=== PATIENT | female | born 1990 | race Asian ===

== ENCOUNTER 2020-02-07 05:15 | Emergency (ER) | payer BC ==
[~2020-02-07] VITALS: Ht 154.9 cm; Wt 95.0 kg
[2020-02-07 06:20] LABS: D-DIMER 0.25 MG/L FEU (0-0.50)
[2020-02-07 06:22] LABS: ALANINE AMINOTRANSFERASE 113 U/L (12-78); ALBUMIN 3.6 G/DL (3.4-5.0); ALBUMIN/GLOBULIN RATIO 0.7 (1.1-1.5); ALKALINE PHOSPHATASE 86 IU/L (46-116); ANION GAP 10 (8-16); ASPARTATE AMINO TRANSFERASE 86 U/L (10-37); BASOPHILS % (AUTO) 0.3 % (0-1); BILIRUBIN,TOTAL 0.5 MG/DL (0.1-1.0); BLOOD UREA NITROGEN 5 MG/DL (7-18); BUN/CREATININE RATIO 6.8 (6.6-38.0); CHLORIDE 102 MMOL/L (99-107); CREATININE 0.74 MG/DL (0.40-0.90); EOSINOPHILS % (AUTO) 0 % (0-6); GLUCOSE 130 MG/DL (70-104); HEMATOCRIT 45.6 % (35.0-45.0); HEMOGLOBIN 15.3 g/dl (12.0-16.0); LYMPHOCYTES # (AUTO) 0.9 X10'3 (1.1-4.8); LYMPHOCYTES % (AUTO) 12.1 % (21-51); MEAN CORPUSCULAR HEMOGLOBIN 29.5 PG (27.0-31.0); MEAN CORPUSCULAR HGB CONC 33.4 g/dL (33.0-36.5); MEAN CORPUSCULAR VOLUME 88.2 FL (78-98); MEAN PLATELET VOLUME 8.7 FL (7.4-10.4); MONOCYTES # (AUTO) 0.6 X10'3 (0-0.9); MONOCYTES % (AUTO) 8.2 % (2-12); NEUTROPHILS # (AUTO) 5.7 X10'3 (1.8-7.7); NEUTROPHILS % (AUTO) 79.4 % (42-75); PLATELET COUNT 202 X10'3 (140-440); POTASSIUM 3.5 MMOL/L (3.5-5.1); RED BLOOD COUNT 5.17 X10'6 (4.20-5.60); SODIUM 139 MMOL/L (135-145); TOTAL CARBON DIOXIDE 26.6 MMOL/L (24-32); TOTAL PROTEIN 8.6 G/DL (6.4-8.2); WHITE BLOOD COUNT 7.2 X10'3 (4.5-11.0); eGFR > 90 ML/MIN
[2020-02-07 06:36] LABS: C-REACTIVE PROTEIN 9.81 MG/DL (0.0-0.5); FERRITIN 639 NG/ML (8-252); LACTATE DEHYDROGENASE 305 U/L (81-234)
--- NOTE | 2020-02-07 07:50 | NUR ---
CANCEL LA AND BLOOD CULTURES PER DR. ROLLINS.
[2020-02-07] MEDS ORDERED: ALBU8HFA PO (08:14)
[2020-02-07 08:21] VITALS: BP 136/82
== END 2020-02-07 08:24 | disposition home or self-care (01) ==
LOC: ER 05:16
DX: U07.1 COVID-19 (principal)
CPT/HCPCS: 36415; 71045; 80053; 82728; 83615; 83880; 84145; 84484; 85025; 85379; 85384; 86140; 93005; 99285

== ENCOUNTER 2023-02-14 18:44 | Emergency (ER) | payer BC ==
[~2023-02-14] VITALS: Ht 154.9 cm; Wt 109.1 kg
[2023-02-14 18:56] VITALS: BP 175/119; PULSE 110; RESP 16; TEMP 99.3; O2SAT 96
[2023-02-14] MEDS ORDERED: NAPR-56 PO (19:23)
[2023-02-14] MEDS ORDERED: CEPH-585 PO (19:23)
[2023-02-14] MEDS ORDERED: SULF1TAB49 PO (19:23)
== END 2023-02-14 19:56 | disposition home or self-care (01) ==
LOC: ER 18:45
DX: L03.314 Cellulitis of groin (principal)
CPT/HCPCS: 99283